=== PATIENT | female | born 1965 | race Asian ===

== ENCOUNTER 2024-10-15 23:44 | Emergency (ER) | payer OTHER ==
[~2024-10-15] VITALS: Ht 157.5 cm; Wt 69.0 kg
[2024-10-15 23:47] VITALS: O2SAT 97
[2024-10-16 00:19] LABS: BASOPHILS % 0.6 % (0.0-2.0); EOSINOPHILS % 0.9 % (0.0-5.0); HEMATOCRIT. 37.7 % (36.0-48.0); HEMOGLOBIN. 12.4 g/dL (12.0-16.0); LYMPHOCYTES % 37.4 % (20.0-50.0); MEAN CORPUSCULAR HEMOGLOBIN 28.2 pg (28.0-32.0); MEAN CORPUSCULAR HGB CONC 32.8 g/dL (31.0-37.0); MEAN CORPUSCULAR VOLUME 85.8 fL (81.0-99.0); MEAN PLATELET VOLUME 8.9 fl (7.4-10.4); MONOCYTES % 4.3 % (2.0-8.0); NEUTROPHILS % 56.8 % (40.0-76.0); PLATELET 206 x1000/uL (130-400); RED BLOOD CELL COUNT 4.39 mill/uL (4.2-5.4); RED CELL DISTRIBUTION WIDTH 13.8 % (11.6-14.6); WHITE BLOOD COUNT 10.2 x1000/uL (4.5-11.0)
[2024-10-16 00:28] LABS: CARBON DIOXIDE 28 mEq/L (21-32); CHLORIDE 108 mEq/L (98-107); POTASSIUM 3.1 mEq/L (3.5-5.1); SODIUM 143 mEq/L (136-145)
[2024-10-16 00:29] LABS: CALCIUM 9.4 mg/dL (8.7-10.4)
[2024-10-16 00:30] LABS: INR 0.9; PARTIAL THROMBOPLASTIN TIME 24.1 sec (23.4-31.0); PROTHROMBIN TIME 10.2 sec (9.6-11.0)
[2024-10-16 00:34] LABS: CREATININE 0.8 mg/dL (0.6-1.0); GLUCOSE 126 mg/dL (70-105); UREA NITROGEN BLOOD 12 mg/dL (9-23)
[2024-10-16 00:51] LABS: TROPONIN I HIGH SENSITIVITY < 4 ng/L (3.0-34)
[2024-10-16 00:52] LABS: ETHANOL BLOOD < 10 mg/dL (<10)
[2024-10-16] MEDS ORDERED: ONDA4TAB50 MT (01:18)
[2024-10-16] MEDS ORDERED: POTA-205 MT (01:18)
[2024-10-16] MEDS: MAGNESIUM/ALUMINUM HYDROXIDE/SIMETHICONE 30ML UDC PO NR (01:29)
[2024-10-16] MEDS: POTASSIUM CHLORIDE 20MEQ/PACKET PO NR (01:29)
[2024-10-16 01:37] VITALS: BP 122/62; PULSE 88; RESP 20; TEMP 36.5; O2SAT 97
== END 2024-10-16 01:47 | disposition home or self-care (01) ==
LOC: ER 23:44
DX: R11.2 Nausea with vomiting, unspecified (principal); E87.6 Hypokalemia; Z79.899 Other long term (current) drug therapy
CPT/HCPCS: 36415; 71045; 80048; 80320; 83880; 84484; 85025; 93005; 99285; G0480